=== PATIENT | male | born 1970 | race Caucasian/White ===

== ENCOUNTER 2020-01-12 15:04 | Emergency (ER) | payer OTHER ==
[~2020-01-12] VITALS: Ht 180.3 cm; Wt 124.7 kg
[~2020-01-12 15:04] MED LIST: DULO60CA45 PO; PANT40TA49 PO; SERT25TA5 PO; TOPI25TA49 PO
--- NOTE | 2020-01-12 15:25 | NUR ---
Note undone in EDM - 01/12/20 at 1544 by JOTOLENTIN bibself with c/o right groin area pain radiating to RLE. sent by Primary MD ana ruff for RLE venous ultrasound to R/o DVT. with c/o headache of 10/10 for 1 month. no seizure episode. no n/v. awaiting for md harris
--- NOTE | 2020-01-12 15:53 | NUR ---
came to er from home stating "I'M HAVING TROUBLE EXPRESSING MYSELF". C/O LEFT SIDE WEAKNESS. pt able to move all extremities. no facial drooping. no episode of slurred speech. pt ambulatory. pt states he might be anxious. awaiting for MD harris
--- NOTE | 2020-01-12 16:01 | NUR ---
SEEN AND EVALUATED BY MD WITH NEW ORDERS NOTED
--- NOTE | 2020-01-12 16:09 | NUR ---
PT OUT FOR CT
--- NOTE | 2020-01-12 16:15 | NUR ---
pt came back from ct
[2020-01-12 18:00] VITALS: BP 142/89
== END 2020-01-12 18:00 | disposition home or self-care (01) ==
LOC: ER 15:05
DX: R41.0 Disorientation, unspecified (principal); R11.0 Nausea; R07.89 Other chest pain; Z60.2 Problems related to living alone; Z79.899 Other long term (current) drug therapy
CPT/HCPCS: 70450-TC